=== PATIENT | male | born 1955 | race Caucasian/White ===

== ENCOUNTER 2023-02-16 13:42 | Inpatient (IN) ==
[2023-02-16 15:43] VITALS: BMI 31.3
[2023-02-16] MEDS ORDERED: VENTOLIN or PROAIR HFA IN PRN (17:48)
[2023-02-16] MEDS ORDERED: NITROSTAT SL PRN (17:48)
[2023-02-16] MEDS ORDERED: REFLEX: PROVENTIL NEB & PulmiCORT NEB~ NEB SCH (18:00)
[2023-02-16] MEDS ORDERED: LR 1,000 ML IV 1,000 ML IV ONE (18:04)
[2023-02-16] MEDS: LR 1,000 ML IV 1,000 ML IV SCH (18:10)
[2023-02-16 18:19] LABS: BASOPHILS # (AUTO) 0.2 X10^3/uL (0.0-0.1); BASOPHILS % (AUTO) 1.8 % (0.2-1.0); EOSINOPHILS # (AUTO) 0.2 x10^3/uL (0.0-0.2); EOSINOPHILS % (AUTO) 2.4 % (0.9-2.9); HEMATOCRIT 45.6 % (42.0-54.0); HEMOGLOBIN 15.7 g/dL (13.5-18.0); LYMPHOCYTES % (AUTO) 29.9 % (21.0-51.0); MEAN CORPUSCULAR HEMOGLOBIN 30.4 pg (27.0-34.0); MEAN CORPUSCULAR HGB CONC 34.4 g/dL (33.0-35.0); MEAN CORPUSCULAR VOLUME 88.4 fL (80.0-100.0); MEAN PLATELET VOLUME 7.4 fL (7.4-11.0); MONOCYTES % (AUTO) 9.6 % (0.0-13.0); NEUTROPHILS # (AUTO) 5.7 x10^3/uL (2.2-4.8); NEUTROPHILS % (AUTO) 56.3 % (42.0-75.0); PLATELET COUNT 253 X10^3/uL (150.0-450.0); RED BLOOD COUNT 5.16 X10^6/uL (4.7-6.0); RED CELL DISTRIBUTION WIDTH 14.2 % (11.6-16.5); WHITE BLOOD COUNT 10.2 X10^3/uL (3.6-10.0)
[2023-02-16 18:29] LABS: ALANINE AMINOTRANSFERASE 35 Units/L (12-78); ALBUMIN 3.9 g/dL (3.4-5.0); ALKALINE PHOSPHATASE 75 Units/L (46-116); ASPARTATE AMINO TRANSFERASE 31 Units/L (15-37); BLOOD UREA NITROGEN 18 mg/dL (7-18); CALCIUM 8.8 mg/dL (8.5-10.1); CARBON DIOXIDE 24.4 mmol/L (21-32); CHLORIDE 101 mmol/L (98-107); GLUCOSE 80 mg/dL (65-99); POTASSIUM 3.9 mmol/L (3.5-5.1); SODIUM 137 mmol/L (136-145); TOTAL PROTEIN 7.8 g/dL (6.4-8.2); eGFR NON BLACK RACES 46 (>60)
[2023-02-16] MEDS ORDERED: OMNIPAQUE 350 mg/mL 100 mL BTL 100 ML ONE (19:22)
[2023-02-16] MEDS ORDERED: NS 100 ML IV 100 ML ONE (19:22)
[2023-02-16] MEDS ORDERED: OMNIPAQUE 350 mg/mL 50 mL BTL 50 ML ONE (19:22)
--- NOTE | 2023-02-16 19:25 | EKG ---
Test Reason : Surgery Blood Pressure : */* mmHG Vent. Rate : 79 BPM Atrial Rate : 79 BPM P-R Int : 132 ms QRS Dur : 120 ms QT Int : 386 ms P-R-T Axes : 43 42 67 degrees QTc Int : 442 ms Normal sinus rhythm RSR' or QR pattern in V1 suggests right ventricular conduction delay Possible Anterior infarct , age undetermined Abnormal ECG No previous ECGs available Confirmed by Neal Bell ([id number]) on 02/21/2023 8:06:47 AM Referred By: Confirmed By: Neal Bell
[2023-02-16] MEDS: CRESTOR TAB 10 MG PO SCH (20:28)
[2023-02-16] MEDS: FLEXERIL TAB 10 MG PO SCH (20:28)
[2023-02-16] MEDS: PERCOCET TAB 5/325 MG PO PRN (20:34)
--- NOTE | 2023-02-16 20:48 | CT ---
HISTORYISCHEMIA OF LOWER LEGSSTUDYCTA AORTA WITH RUNOFFCOMPARISONNone.TECHNIQUEMultiple axial images of the abdomen and pelvis were obtained from the mesenteric vasculature to the plantar surface of the feet both prior to and after the administration of IV contrast. 3D reconstructions were performed utilizing radial maximum intensity projection imaging. Dose reduction techniques including Automated Exposure Control (AEC) and adjustment of mA and kV were utilized.FINDINGSThere is atherosclerotic disease noted heavily of the left anterior descending artery, left circumflex, right left main coronary arteries. There is 4 cm aneurysmal dilatation of the ascending aorta without leakage or rupture.There is diffuse fatty infiltration of the liver seen is diffuse low attenuation to the liver. There are cholecystectomy clips in the gallbladder fossa.There is evidence for left nephrectomy changes. There is a right upper pole renal cortical cyst measuring 1.8 cm. Calcification within a right renal vessel is seen extending into the hilum which should not be mistaken for a renal calculus.The visualized portions of the solid organs are unremarkable in their CT appearance. No significant mesenteric lymphadenopathy or stranding can be observed. No free fluid or free air is seen within the abdomen. No bowel wall thickening or bowel dilatation is present . The colon is unremarkable. Specifically, there is no diverticulosis noted within the sigmoid colon. The urinary bladder is grossly unremarkable. The bony structures are grossly intact. Degenerative disc disease and degenerative changes at L5-S1 seen as marked narrowing of the disc space and marginal osteophyte formation is noted. There are small bilateral inguinal hernias with only herniation of fat through the defect.The abdominal aorta reveals circumferential extensive atherosclerotic disease without narrowing or stenosis.Infrarenal abdominal aorta: Patent with extensive circumferential atherosclerotic disease. Infrarenal abdominal aortic aneurysm measuring 2.7 cm. There is circumferential thickening with atheromatous plaque seen of the infrarenal abdominal aortic aneurysm without significant stenosis.Common iliac arteries: Atherosclerotic disease of the common iliac arteries are noted extensively extensive atherosclerotic disease and atheromatous plaque narrows the left common iliac artery significant with a residual string of enhancement extending to the bifurcation beyond the extensive atheromatous plaqueExternal iliac arteries: Atherosclerotic disease lines the external iliac arteriesCommon femoral arteries: Scattered atherosclerotic disease, left greater than right. Approximately 40 percent stenosis of the left common femoral artery is noted.Superficial femoral arteries: Scattered atherosclerotic disease, this is worse on the right with complete thrombosis of the right superficial femoral artery in various locations and high-grade stenosis of the left superficial femoral artery throughout its more distal course.Popliteal arteries: The popliteal arteries are patent but small and diminutive in size. The right popliteal artery reconstitutes more distally and probably reveals retrograde flow into the very distal right superficial femoral artery.Tibial vasculature: On the right, patent, down to the level of the ankle joint with a right dorsalis pedis artery on the left the vessels are only patent to the distal lower leg and then Vann out with only the distal medial foot vasculature revealing enhancement. The left dorsalis pedis artery is never well seen and the anterior tibialis artery appears to taper to narrowing and stenosis within the distal left lower leg. The posterior tibialis artery appears to be seen to the level of the left ankle joint and is not visualized beyond this area.IMPRESSION4 cm mild aneurysmal dilatation of the ascending aorta and 2.7 cm infrarenal abdominal aortic aneurysm. No evidence for rupture or leakage.Extensive narrowing of the left common iliac artery due to atheromatous and atherosclerotic plaque. This may warrant angioplasty and stenting. More distally it becomes patent just proximal to the left common iliac artery bifurcation.Complete thrombosis of the distal half of the right superficial femoral artery down to the level of the popliteal artery.Scattered peripheral vascular disease, more pronounced within the left lower leg distally, as described.Remote resection of the left kidney.Electronically signed by: Vivienne Shook (Feb 16, 2023 20:47:08)
[2023-02-16] MEDS: PULMICORT NEB TX 0.5 MG NEB SCH (20:55)
[2023-02-16] MEDS: PROVENTIL NEB TX 0.083% 2.5MG/ 3ML NEB SCH (20:55)
--- NOTE | 2023-02-17 05:10 | RAD ---
HISTORYPREOP-CRITICAL ISCHEMIA BLESTUDYCHEST, 1 [id number] cardiomediastinal silhouette is stable. No acute airspace disease. No pneumothorax or effusion. The bony thorax appears intact.IMPRESSIONNo acute cardiopulmonary disease.Electronically signed by: JORDEN BOYER (Feb 17, 2023 05:08:27)
[2023-02-17] MEDS: LR 1,000 ML IV 1,000 ML IV SCH ×2 (06:24→20:47)
[2023-02-17] MEDS: PROVENTIL NEB TX 0.083% 2.5MG/ 3ML NEB SCH ×2 (08:21→21:41)
[2023-02-17] MEDS: PULMICORT NEB TX 0.5 MG NEB SCH ×2 (08:21→21:41)
[2023-02-17] MEDS ORDERED: PROVENTIL NEB TX 0.083% 2.5MG/ 3ML NEB SCH (09:00)
[2023-02-17] MEDS: PROTONIX TAB 40 MG PO SCH (10:01)
[2023-02-17] MEDS: FLOMAX PO SCH ×2 (10:01→22:14)
[2023-02-17] MEDS: ASPIRIN EC 81 MG PO SCH (10:01)
[2023-02-17] MEDS: NORVASC TAB 10 MG PO SCH (10:01)
[2023-02-17] MEDS ORDERED: NS 100 ML IV 100 ML ONE (10:30)
[2023-02-17] MEDS ORDERED: LR 1,000 ML IV 1,000 ML IV ONE (10:30)
[2023-02-17] MEDS ORDERED: ANCEF VIAL 1 GRAM ONE (10:30)
[2023-02-17] MEDS ORDERED: PROTAMINE SULFATE 50 MG VIAL ONE (10:43)
[2023-02-17] MEDS ORDERED: MARCAINE 0.5% ONE (10:55)
[2023-02-17] MEDS ORDERED: HEPARIN SODIUM IN D5W 75,000 UNITS/1,500 ML BAG ONE (10:55)
[2023-02-17] MEDS ORDERED: KETAMINE 50 MG/5 ML-NACL SYRNG ONE ×2 (11:00→11:34)
[2023-02-17] MEDS ORDERED: VERSED ONE (11:00)
[2023-02-17] MEDS ORDERED: PEPCID 20 MG VIAL ONE (11:01)
[2023-02-17] MEDS ORDERED: FENTANYL VIAL INJ 100 mcg ONE (11:01)
[2023-02-17] MEDS ORDERED: ZOFRAN INJ 4 MG VIAL ONE (11:01)
[2023-02-17] MEDS ORDERED: OFIRMEV IV 1000 MG VIAL 1,000 MG/100 ML VIAL IV ONE (11:02)
[2023-02-17] MEDS ORDERED: DIPRIVAN VIAL 20 ML ONE ×5 (11:02→13:29)
[2023-02-17] MEDS ORDERED: ROBINUL ONE (11:02)
[2023-02-17] MEDS ORDERED: PRECEDEX INJ VIAL IVP ONE (11:02)
[2023-02-17] MEDS ORDERED: TORADOL 30 MG VIAL ONE (11:02)
[2023-02-17] MEDS ORDERED: HEPARIN SODIUM INJ 5000 UNITS ONE ×2 (11:02→13:32)
[2023-02-17] MEDS ORDERED: XYLOCAINE 2 % (PLAIN) ONE (11:19)
[2023-02-17] MEDS ORDERED: VENTOLIN or PROAIR HFA ONE (11:19)
[2023-02-17] MEDS ORDERED: VISIPAQUE 100 ML ONE (11:28)
[2023-02-17] MEDS ORDERED: NEO-SYNEPHRINE INJ ONE (11:43)
[2023-02-17] MEDS ORDERED: EPHEDRINE SULFATE INJ ONE (12:13)
[2023-02-17] MEDS ORDERED: DILAUDID INJ ONE (12:53)
[2023-02-17] MEDS ORDERED: NS 1,000 ML IV 1,000 ML ONE ×2 (12:54→14:03)
[2023-02-17] MEDS ORDERED: VISIPAQUE 50 ML ONE (12:55)
[2023-02-17] MEDS ORDERED: DUONEB 0.5 MG/3 MG (3 mL) NEB ONE (13:53)
[2023-02-17] MEDS ORDERED: BENADRYL INJ 50 MG VIAL IVP PRN (14:18)
[2023-02-17] MEDS ORDERED: ZOFRAN INJ 4 MG VIAL IVP PRN (14:18)
[2023-02-17] MEDS ORDERED: BARHEMSYS INJ IVP PRN (14:18)
--- NOTE | 2023-02-17 14:43 | OR.IMMED ---
IMMEDIATE POST-OP NOTE Immediate Post-Op Note Pre-Op Diagnosis: Critical ischemia Both legs with known left common iliac medina ry complete occlusion, severe stenosis right common iliac stenosis, completely occluded right superficial femoral artery with three vessel runoff, significant stenosis left superficial femoral artery distally Post-Op Diagnosis: as above , Could not stent the occluded left common iliac artery , was able to stent the right common iliac artery stenosis, Performed atherectomy and drug-coated balloon angioplasty of the completely occluded right superficial femoral artery from right posterior tibial artery approach , patient will require a femoral femoral bypass. May require intervention of the left superficial femoral artery in the future . Femoral- femoral bypass scheduled for tomorrow. Procedure: see post op diagnosis above Description of Procedure: dictated Surgeon/Manager Market Development: Long Findings: Completely occluded take off of the left common iliac artery, reconstitution of the left external iliac artery ,severe disease greater than 50% of the take off of the right common iliac artery ,completely occluded right superficial femoral artery from its take off to the popliteal artery ,3 vessel runoff of the right leg ,possible severe stenosis left distal superficial femoral artery ,left anterior tibial artery occluded ,remaining two vessel r unoff of the left foot Estimated Blood Loss: 250 cc Complications: none Progress Notes: patient returned to the floor. All of these findings discussed with his and family. Will schedule for a femoral femoral bypass tomorrow
[2023-02-17] MEDS: FLEXERIL TAB 10 MG PO SCH (20:41)
[2023-02-17] MEDS: CRESTOR TAB 10 MG PO SCH (20:42)
[2023-02-17] MEDS: PERCOCET TAB 5/325 MG PO PRN (20:43)
[2023-02-18 06:36] LABS: CALCIUM 8.7 mg/dL (8.5-10.1); CARBON DIOXIDE 23.7 mmol/L (21-32); CREATININE 1.62 mg/dL (0.70-1.30); POTASSIUM 4.6 mmol/L (3.5-5.1)
[2023-02-18] MEDS ORDERED: MARCAINE 0.5% ONE (07:22)
[2023-02-18] MEDS ORDERED: HEPARIN SODIUM IN D5W 75,000 UNITS/1,500 ML BAG ONE (07:22)
[2023-02-18] MEDS ORDERED: DIPRIVAN VIAL 20 ML ONE (07:33)
[2023-02-18] MEDS ORDERED: NEO-SYNEPHRINE INJ ONE ×2 (07:33→09:46)
[2023-02-18] MEDS ORDERED: BRIDION ONE (07:33)
[2023-02-18] MEDS ORDERED: ZEMURON 100 MG VIAL ONE ×2 (07:34→10:42)
[2023-02-18] MEDS ORDERED: VERSED ONE (07:34)
[2023-02-18] MEDS ORDERED: FENTANYL VIAL INJ 250 mcg ONE (07:34)
[2023-02-18] MEDS ORDERED: NS 500 ML IV 500 ML IV ONE ×2 (07:38→09:44)
[2023-02-18] MEDS ORDERED: ANCEF VIAL 1 GRAM ONE (07:39)
[2023-02-18] MEDS ORDERED: NS 1,000 ML IV 1,000 ML ONE ×5 (07:40→10:36)
[2023-02-18] MEDS ORDERED: NS 100 ML IV 100 ML ONE (07:40)
[2023-02-18] MEDS ORDERED: LR 1,000 ML IV 0 ML IV ONE (07:45)
[2023-02-18] MEDS ORDERED: DUONEB 0.5 MG/3 MG (3 mL) NEB ONE (07:47)
[2023-02-18] MEDS ORDERED: XYLOCAINE 2 % (PLAIN) ONE (08:15)
[2023-02-18] MEDS ORDERED: ULTANE GAS IN ONE (08:15)
[2023-02-18 08:48] LABS: HEMATOCRIT 42.5 % (42.0-54.0); HEMOGLOBIN 14.4 g/dL (13.5-18.0)
[2023-02-18] MEDS ORDERED: OFIRMEV IV 1000 MG VIAL 1,000 MG/100 ML VIAL IV ONE (08:56)
[2023-02-18] MEDS: PROVENTIL NEB TX 0.083% 2.5MG/ 3ML NEB SCH ×2 (09:11→21:05)
[2023-02-18] MEDS: PULMICORT NEB TX 0.5 MG NEB SCH ×2 (09:12→21:05)
[2023-02-18] MEDS ORDERED: HEPARIN SODIUM INJ 5000 UNITS ONE ×2 (10:10→10:17)
[2023-02-18] MEDS ORDERED: SUPRANE ONE (10:35)
[2023-02-18] MEDS ORDERED: PROTAMINE SULFATE 50 MG VIAL ONE (10:51)
[2023-02-18] MEDS ORDERED: DILAUDID INJ ONE (11:12)
[2023-02-18] MEDS ORDERED: ZOFRAN INJ 4 MG VIAL IVP PRN (11:45)
[2023-02-18] MEDS ORDERED: DILAUDID INJ IVP PRN (11:45)
[2023-02-18] MEDS ORDERED: BENADRYL INJ 50 MG VIAL IVP PRN (11:45)
[2023-02-18] MEDS ORDERED: REGLAN INJ 10 MG VIAL IVP PRN (11:45)
[2023-02-18] MEDS ORDERED: BARHEMSYS INJ IVP PRN (11:45)
--- NOTE | 2023-02-18 12:41 | OR.IMMED ---
IMMEDIATE POST-OP NOTE Immediate Post-Op Note Pre-Op Diagnosis: Completely occluded left common iliac artery, failed periphera l intervention * 2 Post-Op Diagnosis: same Procedure: femoral femoral bypass with extensive endarterectomy of the right common femoral and proximal superficial femoral arteries Description of Procedure: dictated Surgeon/Calibration Tester: Long Findings: soft left common femoral artery and left proximal superficial femoral artery ,severe disease and plaque of the right common femoral and proximal right superficial femoral artery Specimens Removed: plaque Estimated Blood Loss: 700 cc Complications: none Progress Notes: patient taking to the recovery room after extubation. Significant snoring initially which resolved with his waking up. Discharge to the floor. Discontinue Lim catheter. Check lab work in the morning
[2023-02-18] MEDS: ASPIRIN EC 81 MG PO SCH (17:24)
[2023-02-18] MEDS: FLOMAX PO SCH (17:25)
[2023-02-18] MEDS: NORVASC TAB 10 MG PO SCH (17:25)
[2023-02-18] MEDS: PROTONIX TAB 40 MG PO SCH (17:25)
[2023-02-18] MEDS: LR 1,000 ML IV 1,000 ML IV SCH ×2 (17:26→17:42)
[2023-02-18] MEDS: FLEXERIL TAB 10 MG PO SCH (20:53)
[2023-02-18] MEDS: CRESTOR TAB 10 MG PO SCH (20:53)
[2023-02-18] MEDS: PERCOCET TAB 5/325 MG PO PRN (20:54)
[2023-02-19] MEDS: ZOFRAN INJ 4 MG VIAL IVP PRN ×2 (01:40→22:25)
[2023-02-19] MEDS: LR 1,000 ML IV 1,000 ML IV SCH ×4 (03:05→20:00)
[2023-02-19] MEDS ORDERED: ZOFRAN INJ 4 MG VIAL IVP ONE (04:12)
[2023-02-19 06:47] LABS: BASOPHILS # (AUTO) 0.1 X10^3/uL (0.0-0.1); EOSINOPHILS # (AUTO) 0.1 x10^3/uL (0.0-0.2); EOSINOPHILS % (AUTO) 1.1 % (0.9-2.9); HEMATOCRIT 30.5 % (42.0-54.0); HEMOGLOBIN 10.4 g/dL (13.5-18.0); LYMPHOCYTES # (AUTO) 1.9 X10^3/uL (1.3-2.9); LYMPHOCYTES % (AUTO) 16.8 % (21.0-51.0); MEAN CORPUSCULAR HEMOGLOBIN 30.3 pg (27.0-34.0); MEAN PLATELET VOLUME 7.8 fL (7.4-11.0); MONOCYTES # (AUTO) 0.9 x10^3/uL (0.3-0.8); MONOCYTES % (AUTO) 8.4 % (0.0-13.0); NEUTROPHILS # (AUTO) 8.1 x10^3/uL (2.2-4.8); NEUTROPHILS % (AUTO) 72.7 % (42.0-75.0); PLATELET COUNT 206 X10^3/uL (150.0-450.0); RED BLOOD COUNT 3.43 X10^6/uL (4.7-6.0); RED CELL DISTRIBUTION WIDTH 14.4 % (11.6-16.5); WHITE BLOOD COUNT 11.2 X10^3/uL (3.6-10.0)
[2023-02-19 06:50] LABS: BLOOD UREA NITROGEN 10 mg/dL (7-18); CALCIUM 7.7 mg/dL (8.5-10.1); CARBON DIOXIDE 27.8 mmol/L (21-32); CHLORIDE 103 mmol/L (98-107); COR NA(FOR HYPERGLY) 139 mmol/L (136-145); CREATININE 1.34 mg/dL (0.70-1.30); GLUCOSE 137 mg/dL (65-99); POTASSIUM 3.9 mmol/L (3.5-5.1); SODIUM 138 mmol/L (136-145); eGFR NON BLACK RACES 57 (>60)
[2023-02-19] MEDS: PROVENTIL NEB TX 0.083% 2.5MG/ 3ML NEB SCH ×3 (08:53→20:58)
[2023-02-19] MEDS: PULMICORT NEB TX 0.5 MG NEB SCH ×3 (08:53→20:59)
[2023-02-19] MEDS: NORVASC TAB 10 MG PO SCH (09:31)
[2023-02-19] MEDS: FLOMAX PO SCH (09:31)
[2023-02-19] MEDS: ASPIRIN EC 81 MG PO SCH (09:31)
[2023-02-19] MEDS: PROTONIX TAB 40 MG PO SCH (09:31)
--- NOTE | 2023-02-19 19:06 | NOTE.SOAP ---
Soap Note Note for Day of Date of Exam: 02/19/23 Subjective Data Subjective Data: POD # 1 after fem- fem bypass. Leg pain resolved b/l. . Objective Data Temperature: 99.0 F Pulse Rate: 104 Respiratory Rate: 20 Blood Pressure: 142/73 O2 Sat by Pulse Oximetry: 91 Objective Data: Both feet warm. Both PT arteries with good doppler signal. Incisions dressings both groins clean. Hgb=10.4, Cr=1.34, WBC = 11.2 Assessment Assessment: B/L LE critical ischemia s/p right iliac artery stent , atherectomy and drug coated balloon angioplasty right SFA and fem- fem bypass to resolve left common iliac artery occlusion.
[2023-02-19] MEDS: CRESTOR TAB 10 MG PO SCH (20:00)
[2023-02-19] MEDS: FLEXERIL TAB 10 MG PO SCH (20:00)
[2023-02-20] MEDS: LR 1,000 ML IV 1,000 ML IV SCH ×3 (00:58→18:40)
[2023-02-20] MEDS: PROVENTIL NEB TX 0.083% 2.5MG/ 3ML NEB SCH ×2 (08:47→21:00)
[2023-02-20] MEDS: PULMICORT NEB TX 0.5 MG NEB SCH ×2 (08:47→21:00)
[2023-02-20] MEDS: FLOMAX PO SCH (09:05)
[2023-02-20] MEDS: PROTONIX TAB 40 MG PO SCH (09:05)
[2023-02-20] MEDS: ASPIRIN EC 81 MG PO SCH (09:05)
[2023-02-20] MEDS: NORVASC TAB 10 MG PO SCH (09:06)
[2023-02-20] MEDS ORDERED: MAALOX or MYLANTA PO PRN (19:54)
[2023-02-20] MEDS: FLEXERIL TAB 10 MG PO SCH (20:45)
[2023-02-20] MEDS: CRESTOR TAB 10 MG PO SCH (20:46)
--- NOTE | 2023-02-20 20:51 | DR.OPNOTE ---
OP NOTE Pre-Op Diagnosis: critical ischemia both legs Post-Op Diagnosis: LCIA occlusion, severe stenosisRCIA, OCCLUDED RSFA Procedure Date Date Of Procedure: 02/17/23 Procedure: PROCEDURE: DIAGNOSTIC AORTOGRAM, DIAGNOSTIC ARTERIOGRAM RIGHT LEG , ATTEMPT TO STENT LEFT COMMON ILIAC ARTERY UNSUCCESSFUL, STENTING RIGHT COMMON ILIAC ARTEY, ATHERECTOMY AND DRUG COATED BALLOON ANGIOPLASTY RIGHT SUPERFICIAL FEMORAL ARTERY NARRATIVE : The patient was taken to the operative suite and placed in the supine position. Both groins and both legs were prepped and draped in sterile fashion. The patient was given intravenous sedation supervised by myself. Time out for the procedure obtained. Ultrasound used to identify the left femoral artery and the skin overlying it infiltrated with 0.5% Marcaine. Ultrasound then used to guide puncture of the left femoral artery and a 0.012 inch guide wire was placed. Incision made over the guide wire at the skin edge with a # 11 knife blade and a micro sheath placed over the guide wire into the left femoral artery The small guidewire exchanged for a 0.035 inch Advantage glide wire and the micro sheath exchanged for a 5 Fr vascular sheath. Patient given 5000 units of intravenous heparin. Arteriogram performed of the left iliac artery showing complete occlusion of the left common iliac artery. Multiple attempts were carried out to cross this occlusion but were unsuccessful. Ultrasound then used to identify the right common femoral artery and the skin overlying it infiltrated with 0.5% Marcaine . Ultrasound used to guide puncture of the right common femoral artery and a 0.012 inch guide wire placed . Incision made over this guide wire at the skin edge with a number 11 knife blade and then micro sheath place over the guide wire into the right common femoral artery . Small guide wire exchange for a 0.035 inch Advantage glide wire and the micro sheath exchanged for a 5 Fr vascular sheath .Omni catheter was placed over the guide wire into the aorta and diagnostic aortogram carried out with the power injector showing the occluded left common iliac artery and severe stenosis of the right common iliac artery . The 5 Fr sheath in the right groin then exchanged for a 7 Fr sheath . Over the 0.035 inch wire we placed an 8 mmx 57 mm [place] [employer] balloon expandable stent and deployed it over the area of compression. Arteriogram confirmed excellent results . Ultrasound was used to identify the right posterior tibial artery and the skin overlying it infiltrated with 0.5% Marcaine . Ultrasound used to guide puncture of the right posterior tibial artery and a 0.012 inch guide wire placed. Incision over the guide wire at the skin edge with a number 11 knife blade and a micro sheath placed over this into the right posterior tibial artery. The small guide wire exchanged for a 0.035 inch Advantage glide wire and the micro sheath exchanged for a 7 Fr sheath . Arteriogram carried out confirming that we indeed were in the posterior tibial artery . Using a [place] catheter and a 0.035 inch wire we were able to traverse all the way through the entire occlusion of the entire right superficial femoral artery occlusion into the the right distal external iliac artery. This was confirmed with arteriogram through [place] catheter. This was selective catheterization. 0.035 inch wire removed and exchanged for a 0.014 inch wire. Over this wire we placed the [place] atherectomy device and performed atherectomy of the entire right superficial femoral artery . At this point we performed drug coated balloon angioplasty with a 5 mm x 200 mm [employer] [place] [employer] drug coated balloon and a 5 mmx 150 mm [employer] drug coated balloon to traverse the entire occlusion of the right superficial femoral artery. At the completion of this a follow up arteriogram showed excellent result of revascularization of the right superficial femoral artery. . All wires and devices removed. An additional 3000 units of heparin given at 1 hour. 30 mg of IV Protamine given at the end of the case. Direct pressure held over the puncture sites of each femoral artery for 10 minutes . Tibial band placed over the puncture of the right posterior tibial artery .Dressing applied to the both groins. The patient taken to Same Day surgery in good condition. The patient will be brought back to the operating room tomorrow for a femoral- femoral bypass graft to resolve the completely occluded left common iliac artery. Type of Anesthesia: Local (0.5% ) Anesthesia Comment: PLUS MAC Findings: Completely occluded left, iliac artery, severe stenosis right common iliac artery, complete occlusion of the entire right superficial femoral artery ,KNOWN severe stenosis of the left superficial femoral artery by CT angiogram which will be addressed later Type of Fluids Used:: Lactated Ringers Total Amount of Fluid Infused:: 1200 CC Urine output: 900 CC EBL: 250 CC Hardware: 8MMX 57 MM RIGHT COMMON ILIAC ARTERY STENT PLACEMENT. Complications:: NONE Needle/Sponge Count:: CORRECT Disposition/Condition: Pt. tolerated procedure without difficulty. Taken to floor in stable condition.
--- NOTE | 2023-02-20 22:38 | NOTE.SOAP ---
Soap Note Note for Day of Date of Exam: 02/20/23 Subjective Data Subjective Data: This patient has had right common iliac artery stenting, right superficial femoral artery atherectomy and Drug coated balloon angioplasty followed by a femoral femoral bypass for occluded left common iliac artery. Patient much improved with resolution of rest pain. Walking without difficulty except for incisional tenderness of each groin . Objective Data Temperature: 98.7 F Pulse Rate: 89 Respiratory Rate: 18 Blood Pressure: 141/68 O2 Sat by Pulse Oximetry: 93 Objective Data: as above,both feet warm, Incisions clean each groin, Hgb= 10.4 Assessment Assessment: Status post multiple arterial and interventions as above. Much improved. Plan Plan: Discharge home in the morning
[2023-02-21] MEDS: LR 1,000 ML IV 1,000 ML IV SCH (01:58)
--- NOTE | 2023-02-21 02:05 | DR.OPNOTE ---
OP NOTE Pre-Op Diagnosis: Critical ischemia left leg, completely occluded left common iliac artery Post-Op Diagnosis: same Procedure Date Date Of Procedure: 02/18/23 Procedure: PROCEDURE : FEMORAL - FEMORAL BYPASS, RIGHT COMMON FEMORAL ENDARTERECTOMY NARRATIVE :The patient was taken to the operative suite and placed in the supine position. Both groins and the entire abdomen were prepped and draped in sterile fashion. Time out for the procedure obtained. Vertical incision was made in each groin and the common femoral artery ,superficial femoral artery and profunda femoris arteries were identified and encircled with vessel Loops. Take off of the right superficial femoral artery was very high. The left common femoral artery was very soft. There was extensive plaque of the right common femoral artery extending into the superficial femoral artery. The right common femoral artery was clamped with a vascular clamp and distal arterial structures controlled with vessel loops . The right common femoral artery was opened with a number 11 knife and Pott's scissors A [place] elevator tool was used to dissect out the plaque all the way down into the superficial femoral artery . There was a long plaque . The intima of the lumen was tacked to the surrounding adventitia distally. All floating material removed from the lumen of the right common femoral artery . At this point the left common femoral artery was clamped and opened with a number 11 knife and Pott's scissors. There was no significant plaque here. A 6 mm ringed Gortex graft was tunneled between these two incisions in the subcutaneous tissue over top of the pubic tubercle. The left side of the graft was fashioned for anastomosis and the anastomosis was created with running 5-0 Prolene suture. The graft was clamped and back bleeding allowed with minimal bleeding from the suture line. At this point the graft on the right side was fashioned for anastomosis . This was a very long patch. This was sewn into position with running 5-0 Prolene suture. On releasi ng the clamps the patient had significant bleeding from the suture lines. The patient has been given an additional 3,000 units of Heparin at 1 hour. This was reversed with protamine and Surgicel applied to both anastomosis and the bleeding stopped. There were no bleeding sites that required sutures. Once the bleeding had stopped from the anastomoses the incisions were irrigated with saline. Doppler studies reveal good flow of both of the vessels below the Gortex bypass graft. Each groin incision closed with two layers of running 3-0 Vicryl and the skin closed with skin vinny. Dressings applied and the patient taken to PACU after extubation in stable condition Type of Anesthesia: General Anesthetic w/ETT Findings: completely occluded left common iliac artery, severe plaque of the right common femoral artery Specimen/Pathology: plaque of endarterectomy Type of Fluids Used:: Lactated Ringers EBL: 700 cc Complications:: none Needle/Sponge Count:: correct Disposition/Condition: Pt. tolerated procedure without difficulty. Extubated and taken to PACU in stable condition.
[2023-02-21 04:39] VITALS: BP 138/66; RESP 20; TEMP 97.6; O2SAT 93
[2023-02-21] MEDS: ASPIRIN EC 81 MG PO SCH (08:39)
[2023-02-21] MEDS: PROTONIX TAB 40 MG PO SCH (08:39)
[2023-02-21] MEDS: NORVASC TAB 10 MG PO SCH (08:39)
[2023-02-21] MEDS: FLOMAX PO SCH (08:40)
[2023-02-21] MEDS: PROVENTIL NEB TX 0.083% 2.5MG/ 3ML NEB SCH (08:53)
[2023-02-21] MEDS: PULMICORT NEB TX 0.5 MG NEB SCH (08:53)
[2023-02-21 08:54] VITALS: PULSE 75
--- NOTE | 2023-02-21 13:01 | W.DIS.FURT ---
Summary of Discharge Discharge Summary of Date Date of Exam: 02/21/23 Admission Date Date of Admission: 02/16/23 Admission Diagnosis Hospital Course: This is a 67 year old male with a history of coronary artery disease, diabetes, significant tobacco abuse history and history of peripheral vascular disease. Dr. Manzo in [place], [place] had tried to perform stenting of the completely occluded left common iliac artery from the left ankle approach but was unsuccessful. He was referred to me for resolution. He has rest pain in both lower extremities. CT angiogram was consistent with completely occluded left common iliac artery, severe disease of the right common iliac artery and completely occluded right superficial femoral artery with good run off below the knee. He was seen in my office on February 16 and was admitted that day. CT angiogram results as above. He was taken to the operating Suite on February 17 where he underwent attempt to stent the left common iliac artery This is unsuccessful. On table arteriogram showed severe disease of the right common iliac artery and a completely occluded right superficial femoral artery . He underwent stenting of the right common iliac artery and approach of the right superficial femoral disease from the right posterior tibial artery with atherectomy and drug-coated balloon angioplasty. The following day February 18 he was taken back to the operating room where he underwent an uncomplicated femoral femoral bypass to restore blood flow to the left leg. He has done well. Rest pain resolved both legs and he is walking much better. His incisions are clean and dry of both groins . He will be discharged today on his usual medications including Plavix and aspirin. He will given a prescription for Percocet, 5 mg tablets, one every six hours PRN Pain. He will follow up in one week. He has severe disease of the left superficial femoral artery which will be scheduled for intervention in the near future when I see him next week. Vital Signs: Vital Signs (72 hours) 02/19/23 19:05 02/20/23 22:34 02/18/23 12:16 Temperature 99.0 F 98.7 F Pulse Rate 104 H 89 92 H Pulse Rate [Right Radial] Respiratory Rate 20 18 16 Blood Pressure 142/73 141/68 102/53 Blood Pressure [Left Arm] O2 Sat by Pulse Oximetry 91 L 93 L 94 L Oxygen Delivery Method Nasal Cannula Oxygen Flow Rate FIO2% 02/18/23 13:25 02/18/23 13:53 02/18/23 16:00 Temperature 97.6 F Pulse Rate 92 H Pulse Rate [Right Radial] 73 Respiratory Rate 20 18 Blood Pressure 102/53 Blood Pressure [Left Arm] 111/55 O2 Sat by Pulse Oximetry 95 96 Oxygen Delivery Method Nasal Cannula Nasal Cannula Nasal Cannula Oxygen Flow Rate 4 4 2 FIO2% 36 02/18/23 12:25 02/18/23 12:40 02/18/23 12:55 Temperature 98.1 F 98.1 F 98.1 F Pulse Rate Pulse Rate [Right Radial] 88 87 88 Respiratory Rate 16 16 16 Blood Pressure Blood Pressure [Left Arm] 97/52 95/57 94/54 O2 Sat by Pulse Oximetry 93 L 90 L 94 L Oxygen Delivery Method Nasal Cannula Nasal Cannula Nasal Cannula Oxygen Flow Rate 2 2 2 FIO2% 02/18/23 13:10 02/18/23 13:25 02/18/23 14:25 Temperature 98.1 F 98.1 F 98.0 F Pulse Rate Pulse Rate [Right Radial] 85 83 82 Respiratory Rate 15 15 14 Blood Pressure Blood Pressure [Left Arm] 93/52 101/56 97/54 O2 Sat by Pulse Oximetry 93 L 95 95 Oxygen Delivery Method Nasal Cannula Nasal Cannula Nasal Cannula Oxygen Flow Rate 2 2 2 FIO2% 02/18/23 15:25 02/18/23 16:25 02/18/23 17:25 Temperature 98.0 F 98.2 F 98.2 F Pulse Rate Pulse Rate [Right Radial] 82 77 76 Respiratory Rate 14 15 15 Blood Pressure Blood Pressure [Left Arm] 111/55 136/65 140/67 O2 Sat by Pulse Oximetry 96 94 L 92 L Oxygen Delivery Method Nasal Cannula Nasal Cannula Nasal Cannula Oxygen Flow Rate 2 2 2 FIO2% 02/18/23 19:00 02/18/23 20:54 02/18/23 20:00 Temperature 97.6 F Pulse Rate Pulse Rate [Right Radial] 82 Respiratory Rate 18 20 Blood Pressure Blood Pressure [Left Arm] 113/59 O2 Sat by Pulse Oximetry 96 Oxygen Delivery Method Nasal Cannula Nasal Cannula Oxygen Flow Rate 2 2 FIO2% 02/18/23 21:05 02/18/23 21:06 02/18/23 21:54 Temperature Pulse Rate 76 Pulse Rate [Right Radial] Respiratory Rate 18 Blood Pressure Blood Pressure [Left Arm] O2 Sat by Pulse Oximetry 97 Oxygen Delivery Method Nasal Cannula Oxygen Flow Rate 3 FIO2% 36 02/19/23 00:00 02/19/23 04:00 02/19/23 07:00 Temperature 97.6 F 97.9 F Pulse Rate Pulse Rate [Right Radial] 80 91 H Respiratory Rate 20 21 Blood Pressure Blood Pressure [Left Arm] 112/58 142/67 O2 Sat by Pulse Oximetry 92 L 92 L Oxygen Delivery Method Nasal Cannula Nasal Cannula Nasal Cannula Oxygen Flow Rate 2 2 2 FIO2% 02/19/23 08:54 02/19/23 08:54 02/19/23 08:00 Temperature 98.8 F Pulse Rate 91 H Pulse Rate [Right Radial] 88 Respiratory Rate 20 Blood Pressure Blood Pressure [Left Arm] 146/69 O2 Sat by Pulse Oximetry 89 L 93 L Oxygen Delivery Method Room Air Nasal Cannula Oxygen Flow Rate 3 2 FIO2% 32 02/19/23 12:00 02/19/23 16:00 02/19/23 19:55 Temperature 98.7 F 99.0 F Pulse Rate Pulse Rate [Right Radial] 90 104 H Respiratory Rate 20 20 Blood Pressure Blood Pressure [Left Arm] 164/72 142/73 O2 Sat by Pulse Oximetry 92 L 91 L Oxygen Delivery Method Nasal Cannula Nasal Cannula Nasal Cannula Oxygen Flow Rate 2 2 2 FIO2% 28 02/19/23 19:55 02/19/23 20:00 02/19/23 19:00 Temperature 99.9 F H Pulse Rate 90 Pulse Rate [Right Radial] 101 H Respiratory Rate 22 Blood Pressure Blood Pressure [Left Arm] 149/65 O2 Sat by Pulse Oximetry 91 L 92 L Oxygen Delivery Method Room Air Room Air Oxygen Flow Rate FIO2% 02/20/23 00:00 02/20/23 04:00 02/20/23 05:18 Temperature 98.9 F 98.4 F Pulse Rate Pulse Rate [Right Radial] 102 H 93 H Respiratory Rate 20 18 Blood Pressure Blood Pressure [Left Arm] 145/72 107/54 O2 Sat by Pulse Oximetry 92 L 91 L Oxygen Delivery Method Room Air Room Air Nasal Cannula Oxygen Flow Rate 2 FIO2% 28 02/20/23 07:00 02/20/23 08:00 02/20/23 08:48 Temperature 97.9 F Pulse Rate Pulse Rate [Right Radial] 95 H Respiratory Rate 20 Blood Pressure Blood Pressure [Left Arm] 151/63 O2 Sat by Pulse Oximetry 94 L Oxygen Delivery Method Room Air Room Air Room Air Oxygen Flow Rate 2 FIO2% 28 02/20/23 08:48 02/20/23 12:00 02/20/23 16:00 Temperature 98.0 F 98.0 F Pulse Rate 89 Pulse Rate [Right Radial] 92 H 84 Respiratory Rate 20 20 Blood Pressure Blood Pressure [Left Arm] 147/71 151/72 O2 Sat by Pulse Oximetry 89 L 94 L 93 L Oxygen Delivery Method Room Air Room Air Oxygen Flow Rate FIO2% 02/20/23 20:00 02/20/23 19:00 02/20/23 21:00 Temperature 98.7 F Pulse Rate Pulse Rate [Right Radial] 89 Respiratory Rate 18 Blood Pressure Blood Pressure [Left Arm] 141/68 O2 Sat by Pulse Oximetry 93 L Oxygen Delivery Method Room Air Room Air Nasal Cannula Oxygen Flow Rate 2 FIO2% 28 02/21/23 00:00 02/21/23 04:00 02/21/23 07:00 Temperature 98.4 F 97.6 F Pulse Rate Pulse Rate [Right Radial] 89 90 Respiratory Rate 18 20 Blood Pressure Blood Pressure [Left Arm] 129/70 138/66 O2 Sat by Pulse Oximetry 94 L 93 L Oxygen Delivery Method Room Air Room Air Room Air Oxygen Flow Rate FIO2% 02/21/23 08:53 Temperature Pulse Rate 75 Pulse Rate [Right Radial] Respiratory Rate Blood Pressure Blood Pressure [Left Arm] O2 Sat by Pulse Oximetry 93 L Oxygen Delivery Method Oxygen Flow Rate FIO2% Labs: Laboratory Last Values WBC 11.2 X10^3/uL (3.6-10.0) H 02/19/23 06:14 RBC 3.43 X10^6/uL (4.7-6.0) L 02/19/23 06:14 Hgb 10.4 g/dL (13.5-18.0) L D 02/19/23 06:14 Hct 30.5 % (42.0-54.0) L 02/19/23 06:14 MCV 89.0 fL (80.0-100.0) 02/19/23 06:14 MCH 30.3 pg (27.0-34.0) 02/19/23 06:14 MCHC 34.0 g/dL (33.0-35.0) 02/19/23 06:14 RDW 14.4 % (11.6-16.5) 02/19/23 06:14 Plt Count 206 X10^3/uL (150.0-450.0) 02/19/23 06:14 MPV 7.8 fL (7.4-11.0) 02/19/23 06:14 Neut % (Auto) 72.7 % (42.0-75.0) 02/19/23 06:14 Lymph % (Auto) 16.8 % (21.0-51.0) L 02/19/23 06:14 [place] % (Auto) 8.4 % (0.0-13.0) 02/19/23 06:14 Eos % (Auto) 1.1 % (0.9-2.9) 02/19/23 06:14 Baso % (Auto) 1.0 % (0.2-1.0) 02/19/23 06:14 Neut # (Auto) 8.1 x10^3/uL (2.2-4.8) H 02/19/23 06:14 Lymph # (Auto) 1.9 X10^3/uL (1.3-2.9) 02/19/23 06:14 [place] # (Auto) 0.9 x10^3/uL (0.3-0.8) H 02/19/23 06:14 Eos # (Auto) 0.1 x10^3/uL (0.0-0.2) 02/19/23 06:14 Baso # (Auto) 0.1 X10^3/uL (0.0-0.1) 02/19/23 06:14 Absolute Nucleated RBC 0.0 /100WBC 02/19/23 06:14 Sodium 138 mmol/L (136-145) 02/19/23 06:14 Corrected Sodium 139 mmol/L (136-145) 02/19/23 06:14 Potassium 3.9 mmol/L (3.5-5.1) 02/19/23 06:14 Chloride 103 mmol/L (98-107) 02/19/23 06:14 Carbon Dioxide 27.8 mmol/L (21-32) 02/19/23 06:14 BUN 10 mg/dL (7-18) 02/19/23 06:14 Creatinine 1.34 mg/dL (0.70-1.30) H 02/19/23 06:14 Est GFR (MDRD) Af Amer > 60 (>60) 02/19/23 06:14 Est GFR (MDRD) Non-Af 57 (>60) L 02/19/23 06:14 Glucose 137 mg/dL (65-99) H 02/19/23 06:14 POC Glucose (mg/dL) 186 mg/dL (65-99) H 02/18/23 08:53 Calcium 7.7 mg/dL (8.5-10.1) L 02/19/23 06:14 Corrected Calcium TNP 02/16/23 18:08 Total Bilirubin 0.30 mg/dL (0.2-1.0) 02/16/23 18:08 AST 31 Units/L (15-37) 02/16/23 18:08 ALT 35 Units/L (12-78) 02/16/23 18:08 Alkaline Phosphatase 75 Units/L (46-116) 02/16/23 18:08 Total Protein 7.8 g/dL (6.4-8.2) 02/16/23 18:08 Albumin 3.9 g/dL (3.4-5.0) 02/16/23 18:08 Globulin 3.9 g/dL (2.5-4.5) 02/16/23 18:08 Albumin/Globulin Ratio 1.0 Ratio (1.1-2.1) L 02/16/23 18:08 Blood Type O POSITIVE 02/18/23 07:30 Antibody Screen Negative 02/18/23 07:30 Reason For Visit: CRITICAL ISCHEMIA BLE Discharge Date Discharge Date: 02/21/23 Discharge Diagnosis All Active Problems (Updated 02/21/23 @ 12:58 by Solomon Alves) 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 Pt is to keep follow up appointment as instructed and take medications as ordered. Discharge Medications Discharge Medications: No Known Drug Allergies Allergy (Unknown, Verified 01/13/23 10:22) Discharge Disposition Assessment: see hospital course Discharge Plan Discharge Plan Hospital Course: This is a 67 year old male with a history of coronary artery disease, diabetes, significant tobacco abuse history and history of peripheral vascular disease. Dr. Manzo in [place], [place] had tried to perform stenting of the completely occluded left common iliac artery from the left ankle approach but was unsuccessful. He was referred to me for resolution. He has rest pain in both lower extremities. CT angiogram was consistent with completely occluded left common iliac artery, severe disease of the right common iliac artery and completely occluded right superficial femoral artery with good run off below the knee. He was seen in my office on February 16 and was admitted that day. CT angiogram results as above. He was taken to the operating Suite on February 17 where he underwent attempt to stent the left common iliac artery This is unsuccessful. On table arteriogram showed severe disease of the right common iliac artery and a completely occluded right superficial femoral artery . He underwent stenting of the right common iliac artery and approach of the right superficial femoral disease from the right posterior tibial artery with atherectomy and drug-coated balloon angioplasty. The following day February 18 he was taken back to the operating room where he underwent an uncomplicated femoral femoral bypass to restore blood flow to the left leg. He has done well. Rest pain resolved both legs and he is walking much better. His incisions are clean and dry of both groins . He will be discharged today on his usual medications including Plavix and aspirin. He will given a prescription for Percocet, 5 mg tablets, one every six hours PRN Pain. He will follow up in one week. He has severe disease of the left superficial femoral artery which will be scheduled for intervention in the near future when I see him next week. Patient Disposition: 01 HOME, SELF-CARE Condition: Stable Health Concerns: Post Hospitalization: new medications and changes needed to prevent readmission or further decline. Pt educated and given instructions on all concerns. Care Plan Goals: See hospital course.W e have also encouraged him to stop smoking as it greatly raises his risk of limb loss. Plan of Treatment: Continue with present treatment and follow up plan. Pt is to keep follow up appointment as instructed and take medications as ordered. Assessment: see hospital course Prescription drug monitoring program results: PDMP reviewed with concerns identified Prescriptions: New oxycodone-acetaminophen [Percocet] 10-325 mg tablet 1 tab PO Q6H MDD 4 PRNQty: 30 0RF Continued nebivolol 5 mg tablet 5 mg PO QDAY Qty: 30 2RF clopidogrel 75 mg tablet 75 mg PO QDAY Qty: 90 0RF amlodipine 10 mg tablet 10 mg PO QDAY Qty: 90 0RF pantoprazole 40 mg tablet,delayed release (DR/EC) 40 mg PO QAM Qty: 90 0RF hydrocodone-acetaminophen 10-325 mg tablet 1 tab PO TID MDD 3 30 Days Qty: 90 0RF Rx Instructions: FreeTextSi (one) Tablet Orally three times daily as needed for shoulder, neck and lower back pain; Refills: 0; Provider: Parish Multani albuterol sulfate 90 mcg/actuation HFA aerosol inhaler 2 puff inhalation Q6-8H 90 Days Qty: 6.7 2RF Rx Instructions: FreeTextSi (two) Puff every 4-6 hours prn; Refills: 1; Provider: Parish Multani aspirin [Nathaniel Low Dose Aspirin] 81 mg tablet,delayed release (DR/EC) 81 mg PO QDAY Qty: 30 2RF Rx Instructions: FreeTextSi Oral daily fenofibrate nanocrystallized 48 mg tablet 48 mg PO QDAY Qty: 30 3RF rosuvastatin 40 mg tablet 40 mg PO QPM Qty: 30 2RF cyclobenzaprine 10 mg tablet 10 mg PO HS PRN (Reason: muscle spasm) Qty: 30 2RF Follow ups/Referrals Follow ups/Referrals: ANDRÉS RUBI [Primary Care Provider] - 02/28/23 11:00 am Solomon Alves [STAFF PHYSICIAN] - 03/02/23 4:00 pm Instructions Instructions: Endovascular Therapy for Peripheral Vascular Disease, Care After Activity Restrictions/Additional Instructions: Leave dressings in place until follow up appointment with Dr. Alves Continue home medications as prescribed. Dr. Alves will send in pain prescription to the pharmacy. Stand Alone Forms: Excuse From Work or School, Post Hospital Follow Up Care
== END 2023-02-21 12:00 | disposition home or self-care (01) | DRG 271 ==
LOC: MED/SURG → OBSVTOIN 14:23
PROVIDERS: ADMIT Surgery; ATTEND Surgery